=== PATIENT | male | born 1990 | race Hispanic/Latino ===

== ENCOUNTER 2017-04-05 14:50 | Inpatient (IN) | payer MEDICAID, OTHER ==
[2017-04-05 14:50] VITALS: BMI 24.3
--- NOTE | 2017-04-05 15:39 | C.PDOC ---
History Of Present Illness 26 y/o male presents to ED for detox from heroin (IVDA). Patient reports last use was 20 bags, yesterday. He denies alcohol use. Patient was prescreened by crisis prior to ED arrival. He denies SI, HI, or physical complaints. Time Seen by Provider: 04/05/17 15:00 Chief Complaint (Nursing): Substance Abuse History Per: Patient History/Exam Limitations: no limitations Onset/Duration Of Symptoms: Persistent Current Symptoms Are (Timing): Still Present Modifying Factor(s): Narcotics Severity: Moderate Associated Symptoms: denies: Suicidal Thoughts, Suicidal Plan Past Medical History Reviewed: Historical Data, Nursing Documentation, Vital Signs Vital Signs: Last Vital Signs Temp 98.2 F 04/07/17 17:15 Pulse 88 04/07/17 17:15 Resp 18 04/07/17 17:15 BP 100/80 04/07/17 17:15 Pulse Ox 98 04/07/17 17:15 - Medical History PMH: Anxiety, Depression - [facility] Procedures APPLICATION OF SPLINT (02/05/03) DETOXIFICATION SERVICES FOR SUBSTANCE ABUSE TREATMENT (04/05/17) IMMOBILIZ/WOUND ATTN NEC (06/14/07) INDIV AGRICULTURE PROFESSOR FOR SUBSTANCE ABUSE TREATMENT, PSYCHOEDUCATION (04/05/17) INDIV AGRICULTURE PROFESSOR FOR SUBSTANCE ABUSE TREATMENT, SPIRITUAL (04/05/17) INDIV AGRICULTURE PROFESSOR FOR SUBSTANCE ABUSE, COGNITIVE BEHAVIORAL (04/05/17) INJECT/INFUSE NEC (12/05/13) PHARMACOTHERAPY FOR SUBSTANCE ABUSE, METHADONE MAINT (04/05/17) Family History: States: No Known Family Hx - Social History Hx Tobacco Use: Yes Hx Alcohol Use: Yes Hx Substance Use: Yes - Immunization History Hx Tetanus Toxoid Vaccination: No Hx Influenza Vaccination: No Hx Pneumococcal Vaccination: No Review Of Systems Except As Marked, All Systems Reviewed And Found Negative. Constitutional: Negative for: Fever, Chills Cardiovascular: Negative for: Chest Pain, Palpitations Respiratory: Negative for: Cough, Shortness of Breath, Wheezing Gastrointestinal: Negative for: Nausea, Vomiting, Abdominal Pain, Diarrhea Skin: Negative for: Rash Neurological: Negative for: Headache, Dizziness Psych: Negative for: Suicidal ideation, Withdrawal Physical Exam - Physical Exam Appears: Well, Non-toxic, No Acute Distress Skin: Normal Color, Warm, Dry Head: Atraumatic, Normacephalic Eye(s): bilateral: Normal Inspection Oral Mucosa: Moist Cardiovascular: Rhythm Regular Respiratory: Normal Breath Sounds, No Rales, No Rhonchi, No Wheezing Gastrointestinal/Abdominal: Normal Exam, Bowel Sounds, Soft, No Tenderness Back: Normal Inspection Extremity: Normal ROM Extremity: Bilateral: Atraumatic, Normal Color And Temperature, Normal ROM Neurological/Psych: Oriented x3 Gait: Steady ED Course And Treatment - Laboratory Results Result Diagrams: 04/05/17 16:30 04/05/17 16:30 O2 Sat by Pulse Oximetry: 98 (RA) Pulse Ox Interpretation: Normal Progress Note: Blood work, UA, UDS ordered and reviewed. 18:35- Patient medically cleared. Accepted by Dr. Monte for detox admission for heroin dependence. Disposition - Disposition Disposition: HOSPITALIZED Disposition Time: 18:37 Condition: STABLE - Clinical Impression Clinical Impression: Heroin dependence - Scribe Statement The provider has reviewed the documentation as recorded by the Scribe SM Provider Attestation: All medical record entries made by the Scribe were at my direction and personally dictated by me. I have reviewed the chart and agree that the record accurately reflects my personal performance of the history, physical exam, medical decision making, and the department course for this patient. I have also personally directed, reviewed, and agree with the discharge instructions and disposition. Decision To Admit - Pt Status Changed To: Hospital Disposition Of: Inpatient - Admit Certification Admit to Inpatient:: After my assessment, the patient will require hospitalization for at least two midnights. This is because of the severity of symptoms shown, intensity of services needed, and/or the medical risk in this patient being treated as an outpatient. - InPatient: Physician Admission Certification: I certify that this patient requires 2 or more midnights of care for the following reason:: see notes - . Bed Request Type: Detox Admitting Physician: Anastacio Monte Patient Diagnosis: Heroin dependence
[2017-04-05 16:35] LABS: BASO # 0.1 K/uL (0.0-0.2); BASO % 1.1 % (0.0-2.0); EOS # 0.5 K/uL (0.0-0.7); EOS % 5.9 % (0.0-4.0); HEMATOCRIT 45.5 % (35.0-51.0); LYMPH # 3.7 K/uL (1.0-4.3); MEAN CELL VOLUME 93.4 fL (80.0-94.0); MEAN CORPUSCULAR HEMOGLOBIN 31.3 pg (27.0-31.0); MEAN CORPUSCULAR HGB CONC 33.5 g/dL (33.0-37.0); MEAN PLATELET VOLUME 7.4 fL (7.2-11.7); MONO # 0.9 K/uL (0.0-0.8); MONO % 9.3 % (0.0-10.0); NRBC % 0.1 % (0.0-2.0); RED CELL DISTRIBUTION WIDTH 14.4 % (11.5-14.5); WHITE BLOOD COUNT 9.3 K/uL (4.8-10.8)
[2017-04-05 16:43] LABS: CHLORIDE 98 mmol/L (98-107); SODIUM 140 mmol/L (132-148)
[2017-04-05 16:44] LABS: POTASSIUM 4.4 mmol/L (3.6-5.2)
[2017-04-05 16:46] LABS: ALB/GLOB RATIO 1.3 (1.0-2.1); ALKALINE PHOSPHATASE 79 U/L (38-126); ALT/SGPT 329 U/L (21-72); AST/SGOT 174 U/L (17-59); BILIRUBIN,TOTAL 0.9 mg/dL (0.2-1.3); BLOOD UREA NITROGEN 12 mg/dL (9-20); CARBON DIOXIDE 30 mmol/L (22-30); GFR AFRICAN-AMERICAN > 60; GLUCOSE,RANDOM 112 mg/dL (75-110)
[2017-04-05 16:47] LABS: ALCOHOL SERUM < 10 mg/dl (0-10); CALCIUM 9.6 mg/dl (8.6-10.4)
[2017-04-05 17:58] LABS: RBC URINE 1 /hpf (0-3); URINE BACTERIA OCC (<OCC); URINE BILIRUBIN NEGATIVE (NEGATIVE); URINE BLOOD NEGATIVE (NEGATIVE); URINE COLOR Yellow (YELLOW); URINE GLUCOSE (UA) NORMAL (Normal); URINE KETONE NEGATIVE (NEGATIVE); URINE LEUKOCYTE ESTERASE NEG Leu/uL (Negative); URINE PROTEIN NEGATIVE (NEGATIVE); URINE UROBILINOGEN NORMAL mg/dL (0.2-1.0); WBC URINE 1 /hpf (0-5)
[2017-04-05] MEDS ORDERED: Aluminum Hydroxide/Magnesium Hydroxide Susp (30 mL) PO PRN (19:18)
--- NOTE | 2017-04-05 21:38 | PCM.BM ---
<Sindhu Marley - Last Filed: 04/05/17 21:37> Treatment Plan Problems - Problems identified on initial assessmt Potential for Opiate withdrawal Date Initiated: 04/05/17 Time Initiated: 21:37 Assessment reference: NA Status: Active Priority: 1 Treatment assets and liabiliti Patient Assests: cooperative, ADL independent, negotiates basic needs, cognitively intact Patient Liabilities: substance abuse - Milieu Protocol Maintain good personal hygiene: daily Encourage regular showers, daily Remind patient to perform daily oral care, daily Assist patient to perform ADL's Conduct patient checks and document Observation sheet: Q15 minutes Maintain personal safety: every shift Educate patient to report safety concerns to staff, every shift Monitor environment for contraband/sharps Medication safety: Monitor for expected outcome, potential side effects: every shift, Assess barriers to learning: every shift, Assess readiness for medication education: every shift <Darrel Bernstein - Last Filed: 04/06/17 18:06> - Diagnosis (1) Opioid use disorder, severe, dependence Status: Acute Interventions: 04/06/17 18:05 * Assess 7x/week regarding severity of withdrawal * Educate regarding risks, benefits, side effects and alternatives of medications * Use Motivational Interviewing for abstinence * Use CBT for relapse prevention * Medication management for withdrawal symptoms * Encourage medication assisted treatment *
--- NOTE | 2017-04-06 15:03 | PCM.PSYCH ---
Initial Psychiatric Evaluation - Initial Psychiatric Evaluation Type of Admission: Voluntary Legal Status: Capacity Chief Complaint (in patient's own words): "I need help." History of Present Illness and Precipitating Events: Pt. is seen, chart reviewed, and case discussed with staff. This is a 26 y/o male who presents to detox with long history of heroin dependence. This is his first time in detox. He denies past history of rehab and has been to AA and NA meetings occasionally with his brother. Pt. reports to using 20-40 bags of heroin IV daily for the past 6 months and snorting for 4 years. His last use was yesterday at 10 AM. Pt. reports smoking marijuana for the past week. Pt. also reports use of Xanax for his anxiety. He claims to have used LSD, shroom, and ecstasy sporadically for the past 6-7 years. Pt. reports to using MDMA once in his lifetime, and immediately after use , severe anxiety erupted and "never left me since." Pt. denies use of other pain killers and alcohol. Pt. denies use of cocaine, but tested positive in his urine. Pt. smokes 10 cigarettes daily and cannot use Nicoderm patch due to possible allergic reaction. Pt. reports to having withdrawal sxs--hot/cold, sweats, body aches, severe anxiety as if "something is sitting on my chest." When he is anxious, pt. admits to having racing thoughts, impulse to get high, and inability to sleep. As per pt, he has used Suboxone twice before, but the medication caused him to have more anxiety and panic attack. Thus, pt. requests to be on methadone instead. After care discussed. Pt. reports he wants to go back to college for [employer]' s degree. Past Psych Hx.: anxiety; pt. reports to taking Wellbutrin and Adderall for depression and ADD (prescribed by psychiatrist at [facility] in [place]) Medical Hx: denies (his labs show increased liver enzymes; check for Hep C. 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; lives with mother and sister (18 y/o) Current Medications: Active Medications Generic Name Dose Route Start Last Admin Trade Name Freq PRN Reason Stop Dose Admin Al Hydrox/Mg Hydrox/Simethicone 30 ml 04/05/17 19:18 Maalox 30 Ml PO TID PRN Indigestion / Heartburn Clonidine HCl 0.1 mg 04/05/17 19:18 04/06/17 01:42 Catapres PO 0.1 mg Q8 PRN Administration COWS Score More or Equal to 5 Gabapentin 400 mg 04/06/17 10:00 04/06/17 14:08 Neurontin PO 400 mg TID ERICK Administration Hydroxyzine HCl 25 mg 04/05/17 19:19 04/06/17 07:45 Atarax PO 25 mg Q6 PRN Administration Agitation Loperamide HCl 2 mg 04/05/17 19:18 Imodium PO Q8 PRN Diarrhea Methadone HCl 20 mg 04/06/17 10:00 04/06/17 09:28 Methadone PO 04/10/17 09:59 20 mg Q24H ERICK Administration Taper Ondansetron HCl 4 mg 04/05/17 19:18 Zofran Tab PO Q8 PRN Nausea/Vomiting Pseudoephedrine HCl 60 mg 04/05/17 19:18 Sudafed Tab PO QID PRN Nasal/Sinus Congestion Quetiapine Fumarate 100 mg 04/06/17 22:00 Seroquel PO HS ERICK Trazodone HCl 50 mg 04/05/17 18:44 Desyrel PO HS PRN Agitation Past Psychiatric History - Past Psychiatric History Pertinent Medical Hx (Current Medical&Sleep Prob, Allergies): Allergies Allergy/AdvReac Type Severity Reaction Status Date / Time pcn Allergy ANAPHYLAXIS Uncoded 04/05/17 15:07 No Known Home Med 06/07/16 Review of Systems - Neurological Neurological: UNREMARKABLE - Psychiatric Psychiatric: As Per HPI, Anxiety, Difficulty Concentrating, Irritability Mental Status Examination - Personal Presentation Personal Presentation: Looks stated age - Affect Affect: Constricted - Motor Activity Motor Activity: Calm - Reliability in Providing Information Reliability in Providing Information: Good - Speech Speech: Organized - Mood Mood: Anxious - Formal Thought Process Formal Thought Process: No Impairment - Obsessions/Compulsions Obsessions: No Compulsions: No - Cognitive Functions Orientation: Person, Place, Situation, Time Sensorium: Alert Attention/Concentration: Attentive Abstract Thinking: [place] Estimate of Intelligence: Average Judgement: Intact, as evidence by: Insight regarding need for hospitalization Memory: Recent intact, as evidence by: Ability to recall events of the day - Risk Risk: Withdrawal, Diminished functioning - Strength & Assets Inventory Strength & Assets Inventory: Family support, Education DSM 5 DX - DSM 5 DSM 5 Diagnosis: Opioid use d/o-severe Opioid withdrawal Lzyxnlib-ruqakwob-ddrdtdapdz use d/o-moderate Cannabis use d/o-mild - Recommended/Plan of Treatment Treatment Recommendations and Plan of Treatment: Opioid use d/o-severe CBT for relapse prevention Psychoeducation Supportive therapy, individual therapy Use NM for abstinence Opioid withdrawal Methadone taper As needed meds and vitamins Gabapentin for augmentation Support and psychoeducation daily Attend group activities daily Consider and encourage MAT Refer to after care. Cxpdozhw-gtabwsgg-eldrzeqwgk use d/o-moderate CBT for relapse prevention Psychoeducation Supportive therapy, individual therapy Use NM for abstinence Cannabis use d/o-mild CBT for relapse prevention Psychoeducation Supportive therapy, individual therapy Use NM for abstinence 33 min Projected ELOS: 4-5 days Prognosis: good with treatment Discharge Plan and Discharge Criteria: No wdw sxs Refer to IOP and/or MAT - Smoking Cessation Smoking Cessation Initiated: Yes
--- NOTE | 2017-04-07 09:20 | PCM.PYCHPN ---
Psychiatric Progress Note - Psychiatric Progress Note Patient seen today, length of contact: 17 min Patient Chief Complaint: "I am very anxious" Problems Identified/Issues Discussed: The pt is seen, chart reviewed, case discussed with staff. The pt is compliant with medications and reports no side-effects. Symptoms are improving but needs more time to stabilize. After care discussed, support and psychoeducation given. Meds increased to help him with axiety and breakthrough sxs Medication Change: Yes (increase meds and detox) Medical Record Reviewed: Yes Mental Status Examination - Cognitive Function Orientation: Person, Place, Situation, Time Memory: Intact Attention: Poor Concentration: Poor Association: WNL Fund of Knowledge: WNL - Mood Mood: Anxious - Affect Affect: Constricted - Speech Speech: Appropriate - Formal Thought Process Formal Thought Process: No Impairment - Suicidal Ideation Suicidal Ideation: No - Homicidal Ideation Homicidal Ideation: No Goal/Treatment Plan - Goal/Treatment Plan Need for Continued Stay: Discharge may exacerbated symptoms, Severe functional impairment Progress Toward Problem(s) and Goals/Treatment Plan: Opioid use d/o-severe CBT for relapse prevention Psychoeducation Supportive therapy, individual therapy Use NE for abstinence Opioid withdrawal Methadone taper As needed meds and vitamins Gabapentin for augmentation Support and psychoeducation daily Attend group activities daily Consider and encourage MAT Refer to after care. Gzxjrqhc-pnxopgxn-nydwvgdbos use d/o-moderate CBT for relapse prevention Psychoeducation Supportive therapy, individual therapy Use NE for abstinence Cannabis use d/o-mild CBT for relapse prevention Psychoeducation Supportive therapy, individual therapy Use NE for abstinence
[2017-04-07] MEDS: Benzocaine 10% Oral Anesthetic (12 ml) MM SCH ×3 (11:20→17:21)
[2017-04-07 17:59] VITALS: BP 100/80; PULSE 88; RESP 18; TEMP 98.2; O2SAT 98
--- NOTE | 2017-04-08 09:33 | PCM.PYCHDC ---
Mental Status Examination - Mental Status Examination Orientation: Person, Place, Situation, Time Memory: Intact Mood: Anxious Affect: Constricted Speech: Appropriate Attention: WNL Concentration: WNL Association: WNL Fund of Knowledge: WNL Formal Thought Process: No Impairment Suicidal Ideation: No Current Homicidal Ideation?: No Discharge Summary - Discharge Note Reason for Hospitalization: Heroin detox Consultations:: List each consultation separately and include: 1. Reason for request. 2. Findings. 3. Follow-up Summary of Hospital Course include:: 1. Description of specific treatment plan utilized for patients during their course of treatmen. 2. Summarize the time- course for resolution of acute symptoms and/or regressed behaviors. 3. Describe issues identified and worked on during hospitalization. 4. Describe medication utilized. 5. Describe medical problems identified and treated. 6. Reassessment of suicide risk Summary of Hospital Course: Pt. is seen, chart reviewed, and case discussed with staff. On admission: This is a 26 y/o male who presents to detox with long history of heroin dependence. This is his first time in detox. He denies past history of rehab and has been to AA and NA meetings occasionally with his brother. Pt. reports to using 20-40 bags of heroin IV daily for the past 6 months and snorting for 4 years. His last use was yesterday at 10 AM. Pt. reports smoking marijuana for the past week. Pt. also reports use of Xanax for his anxiety. He claims to have used LSD, shroom, and ecstasy sporadically for the past 6-7 years. Pt. reports to using MDMA once in his lifetime, and immediately after use , severe anxiety erupted and "never left me since." Pt. denies use of other pain killers and alcohol. Pt. denies use of cocaine, but tested positive in his urine. Pt. smokes 10 cigarettes daily and cannot use Nicoderm patch due to possible allergic reaction. Pt. reports to having withdrawal sxs--hot/cold, sweats, body aches, severe anxiety as if "something is sitting on my chest." When he is anxious, pt. admits to having racing thoughts, impulse to get high, and inability to sleep. As per pt, he has used Suboxone twice before, but the medication caused him to have more anxiety and panic attack. Thus, pt. requests to be on methadone instead. After care discussed. Pt. reports he wants to go back to college for [employer]' s degree. Past Psych Hx.: anxiety; pt. reports to taking Wellbutrin and Adderall for depression and ADD (prescribed by psychiatrist at [address] in [place]) Medical Hx: denies (his labs show increased liver enzymes; check for Hep C. dx) Family Substance use Hx: brother--heroin use; mother--heroine use Legal hx: denies Social Hx: single; no children; just received his associate degree; has "side- jobs" doing [employer] and [employer] work; lives with mother and sister (18 y/o) Hospital course: The pt was admitted and started on treatment with psychotherapy, support, psychoeducation and medications. His mother was a pt here not too long ago and she was instrumental in his coming here but he admitted few times that he was not fully ready. IN and CBT used. The pt attended groups and activities, as well as milieu therapy. All the risks and benefits of medications are discussed and the patient understood and agreed. The pt started to improve with the treatments provided. However, he kept asking for more and more meds After care discussed with the patient. However, he decided to leave, feeling closed-in and believing that he was NOT getting enough meds (he was), and despite all the risks discussed, ie relapse, OD and . - Final Diagnosis (DSM 5) Condition upon Discharge: STABLE DSM 5: Opioid use d/o-severe Opioid withdrawal Spkghakf-mqeudkui-tiabdksmef use d/o-moderate Cannabis use d/o-mild Disposition: AGAINST MEDICAL ADVICE Follow-up Treatment Plan: Consider IOP and MAT Use relapse prevention skills Return to ER or call 911 if suicidal, homicidal or symptoms relapse. Stay away from stress, alcohol and drugs. See primary doctor once a year. - Smoking Cessation Smoking Cessation Medication prescribed: No
== END 2017-04-07 17:30 | disposition home or self-care (01) | DRG 895 ==
LOC: C.ER 14:50 → C.7D 18:37
PROVIDERS: ADMIT Psychiatry & Neurology Psychiatry; ATTEND Psychiatry & Neurology Psychiatry
PROC: HZ32ZZZ Individual Counseling for Substance Abuse Treatment, Cognitive-Behavioral (ICD-10-PCS; principal; 2017-04-05)
PROC: HZ3 Substance Abuse Treatment, Individual Counseling (ICD-10-PCS; 2017-04-05)
PROC: HZ36ZZZ Individual Counseling for Substance Abuse Treatment, Psychoeducation (ICD-10-PCS; 2017-04-05)
PROC: HZ91ZZZ Pharmacotherapy for Substance Abuse Treatment, Methadone Maintenance (ICD-10-PCS; 2017-04-05)
PROC: HZ2ZZZZ Detoxification Services for Substance Abuse Treatment (ICD-10-PCS; 2017-04-05)
DX: F11.23 Opioid dependence with withdrawal (principal); F41.0 Panic disorder [episodic paroxysmal anxiety]; F17.210 Nicotine dependence, cigarettes, uncomplicated; F12.90 Cannabis use, unspecified, uncomplicated

== ENCOUNTER 2018-12-09 19:24 | Emergency (ER) | payer SELFPAY ==
[2018-12-09 19:24] VITALS: BMI 24.3
[2018-12-09 19:34] VITALS: BP 115/67; PULSE 80; TEMP 98.9; O2SAT 99
--- NOTE | 2018-12-09 20:03 | C.PDOC ---
History Of Present Illness Patient presents to the ER with complaint of a toothache to the right upper jaw and the left lower jaw. States pain is throbbing, constant and nonradiating. Pain is severe and unrelieved with motrin. Nothing makes his pain better. States chewing makes the pain worse. Patient states he does not have a dentist. Reports hx of dental abscess in the past. Denies fever or chills. There is no headache or sore throat. No other complaints at this time. Time Seen by Provider: 12/09/18 19:59 Chief Complaint (Nursing): Dental Pain Past Medical History Reviewed: Historical Data, Nursing Documentation Vital Signs: Last Vital Signs Temp 98.9 F 12/09/18 19:32 Pulse 80 12/09/18 19:32 Resp 14 12/09/18 19:32 BP 115/67 12/09/18 19:32 Pulse Ox 99 12/09/18 19:32 Primary Care Provider: FAMILY PROVIDER,NO - Medical History PMH: Anxiety, Depression Denies: Diabetes, Hepatitis, HIV, HTN, Seizures, Sexually Transmitted Disease - [facility] Procedures APPLICATION OF SPLINT (02/05/03) DETOXIFICATION SERVICES FOR SUBSTANCE ABUSE TREATMENT (04/05/17) IMMOBILIZ/WOUND ATTN NEC (06/14/07) INDIV AXLE BEARING POLISHER FOR SUBSTANCE ABUSE TREATMENT, PSYCHOEDUCATION (04/05/17) INDIV AXLE BEARING POLISHER FOR SUBSTANCE ABUSE TREATMENT, SPIRITUAL (04/05/17) INDIV AXLE BEARING POLISHER FOR SUBSTANCE ABUSE, COGNITIVE BEHAVIORAL (04/05/17) INJECT/INFUSE NEC (12/05/13) PHARMACOTHERAPY FOR SUBSTANCE ABUSE, METHADONE MAINT (04/05/17) Family History: States: Unknown Family Hx - Social History Hx Tobacco Use: Yes Hx Alcohol Use: Yes Hx Substance Use: Yes - Immunization History Hx Tetanus Toxoid Vaccination: No Hx Influenza Vaccination: No Hx Pneumococcal Vaccination: No Review Of Systems Except As Marked, All Systems Reviewed And Found Negative. Physical Exam - Physical Exam Appears: Well, Non-toxic, No Acute Distress Skin: Normal Color Head: Atraumatic, No Tenderness, No Swelling Eye(s): bilateral: Normal Inspection, PERRL, EOMI Nose: Normal Oral Mucosa: Moist Tongue: Normal Appearing Lips: Normal Appearing Teeth: Caries, Other (There is tendreness to the right lateral incisor with erythema noted to the gum line without any induration or fluctuance. There is also tendrness to the last molar in the left lower jaw without erythema, induration or fluctuance.) Gingiva: No Bleeding Throat: Normal, No Erythema, No Exudate Neck: Normal ROM, Supple Lymphatic: Normal Exam Chest: Symmetrical Respiratory: Normal Breath Sounds Extremity: Normal ROM, No Swelling Extremity: Bilateral: Atraumatic, Normal ROM Neurological/Psych: Oriented x3, Normal Speech, Normal Motor, Normal Sensation ED Course And Treatment O2 Sat by Pulse Oximetry: 99 Medical Decision Making Medical Decision Makin 12/09/18 Patient with toothache to the right upper and left lower jaw. There is no evidence for abscess formation at this time. Will treat with clindamycin due to PCN allergy and pain medication. Patient advised to closely follow-up with a dentist. Will provide referral to dental clinic. Will return with any facial swelling, increased pain, drainage or fevers. Disposition Counseled Patient/Family Regarding: Diagnosis, Need For Followup, Rx Given - Disposition Referrals: [facility] [Outside] Disposition: HOME/ ROUTINE Disposition Time: 20:25 Condition: IMPROVED Additional Instructions: Follow-up with dentist. Take medications as prescribed. Swish with salt water gargles. Also can use mouth wash or 1/2 hydrogen peroxide and 1/2 part water. Return if symptoms worsen or persist. Prescriptions: Acetaminophen with Codeine [Tylenol with Codeine No. 3 300 mg-30 mg] 1 tab PO Q6 3 Days #12 tab Clindamycin [Cleocin] 300 mg PO TID 7 Days #24 cap Instructions: Tooth Decay, Adult (DC), Dental Pain Forms: [facility] [employer] (Lithuanian) - Clinical Impression Clinical Impression: Dental caries
[2018-12-09 20:34] VITALS: RESP 20
== END 2018-12-09 20:33 | disposition home or self-care (01) ==
LOC: C.ER 19:24
DX: K02.9 Dental caries, unspecified (principal); Z72.0 Tobacco use